=== PATIENT | female | born 1960 | race Caucasian/White ===

== ENCOUNTER 2016-06-04 13:01 | Emergency (ER) | payer MEDICAID ==
[~2016-06-04] VITALS: Ht 157.5 cm; Wt 62.0 kg
[2016-06-04 13:40] VITALS: BP 149/57
== END 2016-06-04 14:28 | disposition home or self-care (01) ==
LOC: EMS 13:02
DX: M79.641 Pain in right hand (principal); F17.210 Nicotine dependence, cigarettes, uncomplicated
CPT/HCPCS: 99283; 99406